=== PATIENT | female | born 1940 | race Caucasian/White ===

== ENCOUNTER → 2019-04-08 | Outpatient (CLI) | payer MEDICARE ==
[~2019-04-08] MED LIST: ACEBUTOLOL HCL200 MG PO; AMBIEN 10 MG TA10 MG PO; AMBIEN5 MG PO; ASPIR 8181 MG PO; ATORVASTATIN CA40 MG PO; BENADRYL25 MG PO; BIOTIN1 M1 PO; HYDROCODONE-APA1 TA1 PO; METOPROLOL SUCC50 MG PO; MIRALAX17 GM PO; MULTI VITAMIN1 EACH PO; NAPROSYN500 MG PO; OMEPRAZOLE5 GM PO; PROPAFENONE 15150 MG PO; ZANTAC 150MG T150 MG PO
[2019-04-08 12:12] LABS: ABSOLUTE EOSINOPHILS 0.1 thou/uL (0.0-0.7); ABSOLUTE LYMPHOCYTES 2.2 thou/uL (0.8-5.3); ABSOLUTE MONOCYTES 0.5 thou/uL (0.0-1.2); ABSOLUTE NEUTROPHILS 3.2 thou/uL (1.6-8.1); BASOPHILS 0.5 %; EOSINOPHILS 1.3 %; HEMATOCRIT 39.2 % (37.0-47.0); HEMOGLOBIN 13.3 gm/dL (12.0-15.0); LYMPHOCYTES 36.6 %; MCH 32.2 pg (26.0-34.0); MCV 94.5 fL (80.0-100.0); MONOCYTES 8.3 %; MPV 8.6 fl. (7.2-11.1); NUCLEATED RBCS 0 /100WBC; PLATELET COUNT* 215 thou/uL (150-400); POLYS 53.3 %; RBC 4.15 mil/uL (4.20-5.00); RDW-CV 13.9 % (10.5-14.5)
[2019-04-08 12:18] LABS: CALCIUM 8.7 mg/dL (8.5-10.1); CREATININE 0.9 mg/dL (0.6-1.3); POTASSIUM 4.3 mmol/L (3.5-5.1)
== END ==
LOC: M.LAB 11:52
PROVIDERS: Registered Nurse
DX: R00.2 Palpitations (principal); I48.0 Paroxysmal atrial fibrillation

== ENCOUNTER 2019-04-20 11:20 | Emergency (ER) | payer MEDICARE ==
[~2019-04-20] VITALS: Ht 167.6 cm; Wt 86.2 kg
[2019-04-20 11:37] LABS: ABSOLUTE BASOPHILS 0.1 thou/uL (0.0-0.2); ABSOLUTE LYMPHOCYTES 2.5 thou/uL (0.8-5.3); ABSOLUTE MONOCYTES 0.4 thou/uL (0.0-1.2); ABSOLUTE NEUTROPHILS 4.3 thou/uL (1.6-8.1); EOSINOPHILS 0.6 %; HEMATOCRIT 39.7 % (37.0-47.0); HEMOGLOBIN 13.5 gm/dL (12.0-15.0); LYMPHOCYTES 33.4 %; MCH 32.2 pg (26.0-34.0); MCV 94.6 fL (80.0-100.0); MPV 8.9 fl. (7.2-11.1); NUCLEATED RBCS 0 /100WBC; PLATELET COUNT* 229 thou/uL (150-400); RDW-CV 13.6 % (10.5-14.5); WBC 7.4 thou/uL (4.0-11.0)
[2019-04-20 11:48] LABS: ANION GAP 8 mmol/L (7-16); BUN 19 mg/dL (7-18); CALCIUM 8.8 mg/dL (8.5-10.1); CHLORIDE 103 mmol/L (98-107); CO2 28 mmol/L (21-32); GLUCOSE 114 mg/dL (70-99); SODIUM 139 mmol/L (136-145)
[2019-04-20 11:52] LABS: APTT 25.9 Seconds (25.0-31.3)
[2019-04-20 12:03] LABS: ALBUMIN 3.8 g/dL (3.4-5.0); ALKALINE PHOSPHATASE 109 U/L (46-116); LIPASE 189 U/L (73-393); MAGNESIUM 2.1 mg/dL (1.8-2.4); NT-PRO BRAIN NAT PEPTIDE 186 pg/mL (<300); SGOT 24 U/L (15-37); SGPT 33 U/L (30-65); TOTAL BILIRUBIN 0.6 mg/dL (<0.1-1.0); TOTAL PROTEIN 7.8 g/dL (6.4-8.2)
[2019-04-20 12:06] LABS: CK-MB MASS < 0.5 ng/mL (<0.5-3.6)
[2019-04-20 13:56] VITALS: BP 131/66
--- NOTE | 2019-04-20 14:59 | EKG ---
[place] [address] ELECTROCARDIOGRAM REPORT Name: SEMAJ MANJARREZ [id number] Admission: 04/20/19 Attend Phys: Discharge: 04/20/19 Date of : 36 Report #: [id number] THIS REPORT FOR: //name// [facility] ED Test Date: 2019-04-20 Test Time: 11:24:16 Pat Name: SEMAJ MANJARREZ Department: Room: Gender: F [employer] Worker: : 1940 Requested By: Toribio Parson Order Number: [id number] MD: Darell Lozano Measurements Intervals [place] Rate: 70 P: 13 NM: 183 QRS: 27 QRSD: 105 T: 32 QT: 391 QTc: 422 Interpretive Statements Sinus rhythm Baseline wander in lead(s) V4 Electronically Signed On 04-20-2019 14:58:27 NURSE TECH by Darell Lozano [email or web address] <ELECTRONICALLY SIGNED> By: Darell Lozaon MD, [facility] 04/20/19 1458 [id number] Darell Lozano MD, FACC /EPI
== END 2019-04-20 13:57 | disposition home or self-care (01) ==
LOC: M.ERS 11:20
PROVIDERS: Family Medicine
DX: R07.89 Other chest pain (principal); Z90.710 Acquired absence of both cervix and uterus; Z88.5 Allergy status to narcotic agent